=== PATIENT | male | born 1930 | race Two or more races ===

== ENCOUNTER 2017-05-11 14:26 | Inpatient (IN) | payer OTHER ==
[~2017-05-11] VITALS: Ht 162.6 cm; Wt 56.6 kg
[2017-05-11 15:58] LABS: BLOOD UREA NITROGEN 18 mg/dL (7-18)
[2017-05-11 16:56] LABS: IS PT STATUS REG ER OR PRE ER? YES
[2017-05-11] MEDS ORDERED: SODIUM CHLORIDE FLUSH 10ML SYR IVF ONE (17:00)
[2017-05-11] MEDS ORDERED: SODIUM CHLORIDE 0.9% 1,000ML IVBOLUS ONE (17:00)
[2017-05-11] MEDS ORDERED: SODIUM CHLORIDE 0.9% IV SCH (17:30)
[2017-05-11] MEDS ORDERED: PROPRANOLOL IV SCH (17:30)
[2017-05-11] MEDS ORDERED: LOSA25TA5 PO (17:48)
[2017-05-11] MEDS ORDERED: ESMOLOL/NS PMX 250 ML IV PRN ×2 (18:00)
[2017-05-11] MEDS ORDERED: OMNIPAQUE 350 MG/ML, 100ML BOTTLE ONE (18:04)
[2017-05-11] MEDS ORDERED: SODIUM CHLORIDE FLUSH 10ML SYR IVF PRN (20:00)
[2017-05-11] MEDS ORDERED: ONDANSETRON 2MG/ML, 2ML IVPush PRN (21:30)
[2017-05-11] MEDS ORDERED: LABETALOL 5MG/ML 40ML VIAL IVPush PRN (21:30)
[2017-05-11] MEDS ORDERED: TRAZODONE 50MG TABLET PO PRN (21:30)
[2017-05-11] MEDS ORDERED: DOCUSATE 100 MG CAPSULE PO PRN (21:30)
[2017-05-11] MEDS ORDERED: ACETAMINOPHEN 325 MG TABLET PO PRN (21:30)
[2017-05-11] MEDS ORDERED: POLYETHYLENE GLYCOL 17 GM PACKET PO PRN (21:30)
[2017-05-11] MEDS ORDERED: BISACODYL 10 MG SUPP PR PRN (21:30)
[2017-05-11] MEDS: HEPARIN 5,000 UNITS/ML, 1ML SQ SCH (23:51)
[2017-05-11] MEDS: SODIUM CHLORIDE 0.9% 1,000 ML IV SCH (23:51)
[2017-05-11] MEDS: PROPRANOLOL 60 MG TABLET PO SCH (23:52)
[2017-05-11] MEDS: PROPYLTHIOURACIL 50 MG TABLET PO SCH (23:52)
[2017-05-12 01:00] VITALS: BP 107/65
[2017-05-12] MEDS: POTASSIUM IODIDE ORAL.SOLN 1 GM/ML PO SCH ×3 (01:05→09:02)
[2017-05-12] MEDS: PROPYLTHIOURACIL 50 MG TABLET PO SCH (04:40)
[2017-05-12 05:24] LABS: ASPARTATE AMINO TRANSFERASE 34 U/L (15-37); BLOOD UREA NITROGEN 18 mg/dL (7-18)
[2017-05-12] MEDS ORDERED: PROPYLTHIOURACIL 50 MG TABLET PO SCH (08:00)
[2017-05-12 08:09] VITALS: BP 121/70
[2017-05-12] MEDS: PROPRANOLOL 60 MG TABLET PO SCH (08:51)
[2017-05-12] MEDS: HEPARIN 5,000 UNITS/ML, 1ML SQ SCH ×2 (08:51→17:31)
[2017-05-12] MEDS: SODIUM CHLORIDE 0.9% 1,000 ML IV SCH (09:02)
[2017-05-12] MEDS ORDERED: ATENOLOL 25 MG TABLET PO ONE (10:00)
[2017-05-12 13:46] VITALS: BP 136/81
[2017-05-12 19:39] VITALS: BP 163/69
[2017-05-13] MEDS: HEPARIN 5,000 UNITS/ML, 1ML SQ SCH ×2 (00:14→09:15)
[2017-05-13 02:00] VITALS: BP 116/64
[2017-05-13] MEDS ORDERED: ATENOLOL 25 MG TABLET PO SCH (06:00)
[2017-05-13 06:09] LABS: BLOOD UREA NITROGEN 16 mg/dL (7-18)
[2017-05-13 06:31] VITALS: BP 116/69
[2017-05-13] MEDS ORDERED: ATEN25TA PO (10:12)
[2017-05-13 11:42] VITALS: BP 132/82
[2017-05-13] MEDS ORDERED: PNEUMOCOCCAL 23 VACCINE IM-VACC ONE (12:30)
== END 2017-05-13 14:38 | disposition home or self-care (01) | DRG 644 ==
LOC: ED 16:58 → EDIP 19:54 → 5SO 22:53 → DCLOUNGE 05-13 14:10
PROVIDERS: ADMIT Internal Medicine
DX: E05.20 Thyrotoxicosis with toxic multinodular goiter without thyrotoxic crisis or storm (principal); E06.0 Acute thyroiditis; E88.09 Other disorders of plasma-protein metabolism, not elsewhere classified; I11.9 Hypertensive heart disease without heart failure; D64.9 Anemia, unspecified; R33.9 Retention of urine, unspecified; R60.0 Localized edema; M10.9 Gout, unspecified; Z80.3 Family history of malignant neoplasm of breast; Z23 Encounter for immunization; Z79.899 Other long term (current) drug therapy
CPT/HCPCS: 36415; 71010; 71275; 76536; 76775; 80048; 80053; 81003; 82040; 83735; 83880; 84439; 84443; 84481; 84484; 84550; 85025; 85379; 90732; 93005; 93306; 96360; J1644; Q9967; J7030

== ENCOUNTER 2018-10-21 21:04 | Emergency (ER) | payer MEDICARE, OTHER ==
[~2018-10-21] VITALS: Ht 160 cm; Wt 70.0 kg
[~2018-10-21 21:04] MED LIST: ATEN25TA PO; LOSA25TA6 PO
[2018-10-21 21:36] LABS: BASOPHILS # (AUTO) 0.05 x10^3/uL (0-0.1); BASOPHILS % (AUTO) 1 % (0-1); EOSINOPHILS % (AUTO) 3 % (1-7); LYMPHOCYTES # (AUTO) 2.68 x10^3/uL (1-3.4); LYMPHOCYTES % (AUTO) 33 % (22-44); MD NO; MEAN CORPUSCULAR HGB CONC 32.9 g/dL (33.2-36.2); MEAN CORPUSCULAR VOLUME 88.1 fL (81-97); MEAN PLATELET VOLUME 8.3 fL (7.4-10.4); MONOCYTES # (AUTO) 0.59 x10^3/uL (0.2-0.8); MONOCYTES % (AUTO) 7 % (2-9); NEUTROPHILS # (AUTO) 4.58 x10^3/uL (1.8-6.8); NEUTROPHILS % (AUTO) 57 % (42-75); PLATELET COUNT 245 x10^3/uL (130-400); RED CELL DISTRIBUTION WIDTH 14.4 % (9.4-14.8)
[2018-10-21 21:44] VITALS: BP 109/62
[2018-10-21 21:45] LABS: ALBUMIN 3.5 g/dL (3.4-5.0); ANION GAP 10 mmol/L (5-15); CALCIUM 8.3 mg/dL (8.5-10.1); CHLORIDE 109 mmol/L (98-107); CREATININE 1.36 mg/dL (0.7-1.3)
[2018-10-21 21:49] LABS: TROPONIN I < 0.015 ng/mL (0.000-0.045)
== END 2018-10-21 22:38 | disposition home or self-care (01) ==
LOC: ED 21:19
DX: R55 Syncope and collapse (principal); R07.9 Chest pain, unspecified; R11.10 Vomiting, unspecified; I10 Essential (primary) hypertension; Z86.39 Personal history of other endocrine, nutritional and metabolic disease
CPT/HCPCS: 36415; 71045; 80048; 82040; 83880; 84484; 85025; 93005; 99284

== ENCOUNTER → 2020-09-10 | Outpatient (CLI) | payer MEDICARE, MEDICAID ==
[~2020-09-10] MED LIST changes: +LOSA25TA25 PO; -LOSA25TA6 PO; +OMNIPAQUE 350 MG/ML, 150 ML BOTTLE ONE
== END | disposition home or self-care (01) ==
LOC: CFH 13:03
PROVIDERS: ATTEND Urology
DX: K76.0 Fatty (change of) liver, not elsewhere classified (principal); N40.1 Benign prostatic hyperplasia with lower urinary tract symptoms; M43.06 Spondylolysis, lumbar region; N43.3 Hydrocele, unspecified; M48.061 Spinal stenosis, lumbar region without neurogenic claudication
CPT/HCPCS: 74178; Q9967

== ENCOUNTER 2021-08-14 11:19 | Outpatient (CLI) | payer MEDICARE, MEDICAID ==
[~2021-08-14 11:19] MED LIST changes: -OMNIPAQUE 350 MG/ML, 150 ML BOTTLE ONE
[2021-08-14 11:59] LABS: BASOPHILS % (AUTO) 1 % (0-1); EOSINOPHILS % (AUTO) 5 % (1-7); LYMPHOCYTES % (AUTO) 25 % (22-44); MEAN CORPUSCULAR HEMOGLOBIN 29.9 pg (27.5-34.5); MONOCYTES % (AUTO) 9 % (2-9); NEUTROPHILS % (AUTO) 61 % (42-75); PLATELET COUNT 269 x10^3/uL (130-400); RED BLOOD COUNT 4.51 x10^6/uL (4.38-5.82); RED CELL DISTRIBUTION WIDTH 14.6 % (9.4-14.8)
[2021-08-14 12:03] LABS: ANION GAP 7 mmol/L (5-15); CALCIUM 8.6 mg/dL (8.5-10.1); CHLORIDE 106 mmol/L (98-107)
[2021-08-14 12:13] LABS: ALANINE AMINOTRANSFERASE 15 U/L (12-78); ALBUMIN 3.4 g/dL (3.4-5.0); ALKALINE PHOSPHATASE 108 U/L (45-117); BILIRUBIN,TOTAL 0.5 mg/dL (0.2-1.0); CHOL/HDL RATIO 2.4; CHOLESTEROL, TOTAL 120 mg/dL (140-239); CREATININE 1.07 mg/dL (0.7-1.3); FREE T4 (FREE THYROXINE) 1.12 ng/dL (0.76-1.46); HDL CHOL % 43 % (26-37); HDL CHOLESTEROL (DIRECT) 51 mg/dL (40-60); LDL CHOLESTEROL,CALCULATED 44 mg/dL (54-169); LDL/HDL RATIO 0.9 (0.5-3.0); TOTAL PROTEIN 7.9 g/dL (6.4-8.2); TRIGLYCERIDES 125 mg/dL (50-200); VLDL CHOLESTEROL 25 mg/dL (0-25)
== END 2021-08-14 23:59 | disposition home or self-care (01) ==
LOC: LAB 11:19
PROVIDERS: ATTEND Internal Medicine
DX: I10 Essential (primary) hypertension (principal); E11.65 Type 2 diabetes mellitus with hyperglycemia; E03.9 Hypothyroidism, unspecified; E55.9 Vitamin D deficiency, unspecified; E78.2 Mixed hyperlipidemia; M10.9 Gout, unspecified
CPT/HCPCS: 36415; 80053; 80061; 82043; 82306; 82570; 83036; 84439; 84443; 84550; 85025